=== PATIENT | male | born 1980 | race Caucasian/White ===

== ENCOUNTER 2017-08-04 23:02 | Emergency (ER) | payer OTHER ==
[~2017-08-04] VITALS: Ht 182.9 cm; Wt 88.6 kg
[2017-08-04 23:05] VITALS: BP 125/84; PULSE 60; RESP 18; O2SAT 100
--- NOTE | 2017-08-05 00:19 | ED.REPORT ---
HPI-Dental/Mouth Prob Date of Service Aug 05, 2017 ED Provider: Braden Aguilera DO Pt is 36 year old male with a history of chronic back pain who presents to the ED complaining of worsening right mandibular molar toothache onset 5 days ago. He c/o associated right facial swelling. He denies any other symptoms. Pt reports that he was started on a course of amoxicillin without relief. Pt has also taken oxycodone without relief. He states that he had a root canal with complication recently, resulting in his current symptoms. Nursing Notes Stated Complaint: TOOTH PAIN Chief Complaint: Dental Nursing Notes Reviewed: Yes Allergies: Coded Allergies: No Known Allergies (Unverified Allergy, Unknown, 08/04/17) General Time Seen by MD: 00:18 Chief Complaint Tooth pain Hx Obtained From: Patient Arrived By: Walk-in Onset Occurred: 5 days ago Symptom Duration: Since onset Location: : Tooth lower R molar Quality: Painful Radiation: : Does not radiate Severity: Current: Moderate Severity: Maximum: Moderate Recent Healthcare: No recent doctor visit, No recent hospitalization Similar Sx Previous: No Past Medical History Past Medical History Chronic back pain Past Surgical History Denies Smoking History Former Smoker Social History Alcohol Use: Denies alcohol use Drug Use: Denies drug use Other Social History: Good social support Ambulatory Status Independent Review of Systems + right mandibular molar toothache + right facial swelling Constitutional: Denies: Fever Respiratory: Denies: Non-productive cough, Shortness of breath Complete sys rev & neg: except as marked. Physical Exam Initial Vital Signs Vital Signs (First) Date Time Temp Pulse Resp B/P Pulse Ox O2 Delivery O2 Flow Rate FiO2 08/04/17 23:05 36.2 60 18 125/84 100 Room Air Initial VS: Reviewed Head / Eyes: Atraumatic, Normocephalic Extremities: Vascular intact, Neuro intact Skin: Warm, Dry, No cyanosis Neurologic: Alert, Oriented, Nonfocal Psychiatric: Mood/affect normal, Behavior normal ENT: Atraumatic, Airway patent Carious mandibular molar without signs of forming abscess. No trismus or drooling. Neck: Atraumatic, Full range of motion General/Constitutional: Awake, Alert Re-Eval/Medical Decision Source of Hx: Old records Re-Evaluation/Progress : Time of Eval: 00:23 Re-Evaluation/Progress Note: Informed pt of plan for treatment with dethamexasone, as well as pending plan for discharge. Pt understands and agrees with plan. F/U instructions and RTER warnings given. All questions addressed. Counseled Regarding: Diagnosis, Need for follow-up, When/why to return to ED Discharge & Departure Primary Impression: Toothache Additional Impression: Jaw pain Disposition: Home Discharge Condition All VS Reviewed: Yes Condition: Stable Patient Instructions: Dental Abscess (ED), Dental Caries (ED) Additional Instructions: Take clindamycin 3 times daily for 5 days. Stop taking the amoxicillin. Usual oxycodone as prescribed. Tylenol or Motrin for breakthrough pain. Follow-up with your dentist. Call tomorrow. Return for any problems or worsening symptoms. Try not to chew up your tongue tonight as it may be numb for a couple of hours. Do not drive today as you have received sedating medications. Referrals: Nicole Bhat ND (PCP) Scribe Attestation Portions of this note were transcribed by Almita Stokes. I, Dr. Aguilera personally performed the history, physical exam and medical decision-making; I reviewed and confirmed the accuracy of the information in the transcribed note. Signed by : Germania Cardozo, 08/04/17. copies to: Nicole Bhat ND, Todd P DO Aug 05, 2017 00:19 Almita Fallon Aug 05, 2017 00:30
[2017-08-05] MEDS ORDERED: Dexamethasone 10 mg/mL Inj IM ONE (00:25)
[2017-08-05] MEDS ORDERED: HYDROmorphone 1 mg/mL Inj IM ONE ×2 (00:25→00:33)
[2017-08-05] MEDS ORDERED: Bupivacaine 0.5% 50 mL Inj INFILTRATE ONE (00:25)
[2017-08-05] MEDS ORDERED: Bupivacaine-MPF 0.5% 30 mL Inj ONE (00:29)
[2017-08-05 01:17] VITALS: BP 128/85; PULSE 70; RESP 14; O2SAT 98
== END 2017-08-05 01:19 | disposition home or self-care (01) ==
LOC: SED 23:02
DX: K08.89 Other specified disorders of teeth and supporting structures (principal); R68.84 Jaw pain; Z87.891 Personal history of nicotine dependence
CPT/HCPCS: 64400; 96372; 99284; J1100; J1170